=== PATIENT | male | born 1970 | race African-American/Black ===

== ENCOUNTER 2017-09-14 09:08 | Emergency (ER) | payer SELFPAY ==
[2017-09-14] MEDS ORDERED: Lisinopril 10 MG Tab PO ONE (09:25)
[2017-09-14] MEDS ORDERED: Metoprolol Tartrate 50 MG Tab PO ONE (09:26)
[2017-09-14] MEDS ORDERED: Indomethacin 25 MG Cap PO ONE (09:26)
[2017-09-14] MEDS ORDERED: Sodium Chloride 0.9% 2.5 ML Syringe FLUSH PRN (09:40)
[2017-09-14] MEDS ORDERED: Sodium Chloride 0.9% 10 ML Syringe FLUSH PRN (09:40)
[2017-09-14 10:19] LABS: CHLORIDE,CL 103 mmol/L (98-107); SODIUM,NA 139 mmol/L (136-148)
[2017-09-14] MEDS ORDERED: Aspirin 81 MG Tab.Chew PO ONE (10:27)
--- NOTE | 2017-09-14 10:47 | EDM.PDOC ---
ED HPI GENERAL MEDICAL PROBLEM - General Chief Complaint: Lower Extremity Injury/Pain Stated Complaint: GOUT Time Seen by Provider: 09/14/17 09:28 Source of Information: Reports: Patient History Limitations: Reports: No Limitations - History of Present Illness INITIAL COMMENTS - FREE TEXT/NARRATIVE: History of present illness: []Patient is followed by the CO and ran out of his meds approximately 2 weeks ago apparently some administrative misstake where they were sent to the wrong address. Patient has a history of hypertension, gout and CHF and has been off all his meds. He came in because his toe pain severe. He has been out of his allopurinol, lisinopril and metoprolol. Patient states he an episode of chest pain around 6AM but drank water and resolved. He states his pain only lasted about 2 minutes. Patient was in [place] 2 years ago and he was told he had a "protein leak from his heart" and had an angiogram that was negative. Review of systems: As per history of present illness and below otherwise all systems reviewed and negative. Past medical history: As per history of present illness and as reviewed below otherwise noncontributory. Surgical history: As per history of present illness and as reviewed below otherwise noncontributory. Social history: No reported history of drug or alcohol abuse. Family history: As per history of present illness and as reviewed below otherwise noncontributory. Physical exam: General: Well developed, well nourished in NAD HEENT: Atraumatic, normocephalic, pupils reactive, negative for conjunctival pallor or scleral icterus, mucous membranes moist, throat clear, neck supple, nontender, trachea midline. Lungs: Clear to auscultation, breath sounds equal bilaterally, chest nontender. Heart: S1S2, regular, negative for clicks, rubs, or JVD. Abdomen: Soft, nondistended, nontender. Negative for masses or hepatosplenomegaly. Negative for costovertebral tenderness. Pelvis: Stable nontender. Genitourinary: Deferred. Rectal: Deferred. Extremities: Atraumatic, right great toe tender no edema or deformity noted. Tender to palpation negative for cords or calf pain. Neurovascular unremarkable. Neuro: Awake, alert, oriented. Cranial nerves II through XII unremarkable. Cerebellum unremarkable. Motor and sensory unremarkable throughout. Exam nonfocal. Diagnostics: []EKG shows left bundle branch which is old no acute ischemic changes, CBC normal, chemistry normal, troponin 0.067 which is elevated, Therapeutics: []Aspirin, nitroglycerin, Lopressor and Cipro given in the ED Impression: []Uncontrolled high blood pressure, elevated troponin, gout Plan: []Transfer training [place] for further workup Definitive disposition and diagnosis as appropriate pending reevaluation and review of above. right great toe Pain Score (Numeric/FACES): 6 - Related Data Allergies Allergy/AdvReac Type Severity Reaction Status Date / Time shellfish derived Allergy Anaphylactic Verified 09/14/17 09:18 Shock Home Meds: Home Meds Lisinopril 20 mg PO DAILY #30 tablet 08/30/13 [Rx] Metoprolol Tartrate [Lopressor] 50 mg PO Q12HR #60 tablet 08/30/13 [Rx] Allopurinol 1 tab PO TID 09/14/17 [History] metFORMIN [Glucophage XR] 1 tab PO DAILY 09/14/17 [History] Past Medical History - Past Health History Medical/Surgical History: Denies Medical/Surgical History HEENT History: Reports: None Cardiovascular History: Reports: Hypertension Respiratory History: Reports: None Gastrointestinal History: Reports: None Genitourinary History: Reports: None Musculoskeletal History: Reports: Gout Neurological History: Reports: None Psychiatric History: Reports: None Endocrine/Metabolic History: Reports: Diabetes, Type II Hematologic History: Reports: None Immunologic History: Reports: None Oncologic (Cancer) History: Reports: None Dermatologic History: Reports: None - Infectious Disease History Infectious Disease History: Reports: Chicken Pox - Past Surgical History Head Surgeries/Procedures: Reports: None HEENT Surgical History: Reports: None Cardiovascular Surgical History: Reports: None Respiratory Surgical History: Reports: None GI Surgical History: Reports: Appendectomy Male Surgical History: Reports: None Endocrine Surgical History: Reports: None Neurological Surgical History: Reports: None Musculoskeletal Surgical History: Reports: None Oncologic Surgical History: Reports: None Dermatological Surgical History: Reports: Other (See Below) Social & Family History - Family History Family Medical History: Noncontributory - Tobacco Use Smoking Status *Q: Never Smoker Second Hand Smoke Exposure: No - Caffeine Use Caffeine Use: Reports: Coffee, Energy Drinks, Soda - Recreational Drug Use Recreational Drug Use: No Review of Systems - Review of Systems Review Of Systems: See Below (See history of present illness) ED EXAM, GENERAL - Physical Exam Exam: See Below (See history of present illness) Course - Vital Signs Last Recorded V/S: Last Vital Signs Temp 96.3 F 09/14/17 09:19 Pulse 88 09/14/17 10:27 Resp 17 09/14/17 10:27 BP 195/142 H 09/14/17 10:27 Pulse Ox 96 09/14/17 10:27 - Orders/Labs/Meds Orders: Active Orders 24 hr Category Date Time Status EKG Documentation Completion [RC] STAT Care 09/14/17 09:40 Active Chest 1V Frontal [CR] Stat Exams 09/14/17 10:33 Ordered B-TYPE NATRIURETIC PEPTIDE,BNP [CHEM] Stat Lab 09/14/17 10:33 Ordered CULTURE URINE [RM] Stat Lab 09/14/17 09:43 Received UA W/MICROSCOPIC [URIN] Stat Lab 09/14/17 09:43 Ordered Sodium Chloride 0.9% [Saline Flush] Med 09/14/17 09:40 Active 10 ml FLUSH ASDIRECTED PRN Sodium Chloride 0.9% [Saline Flush] Med 09/14/17 09:40 Active 2.5 ml FLUSH ASDIRECTED PRN Saline Lock Insert [OM.PC] Stat Oth 09/14/17 09:40 Ordered Medication Orders Sodium Chloride (Saline Flush) 10 ml FLUSH ASDIRECTED PRN PRN Reason: Keep Vein Open Last Admin: 09/14/17 09:53 Dose: 10 ml Sodium Chloride (Saline Flush) 2.5 ml FLUSH ASDIRECTED PRN PRN Reason: Keep Vein Open Last Admin: 09/14/17 09:53 Dose: 2.5 ml Labs: Laboratory Tests 09/14/17 09/14/17 09/14/17 Range/Units 09:43 09:47 09:47 WBC 9.04 (4.0-11.0) K/uL RBC 5.10 (4.50-5.90) M/uL Hgb 15.7 (13.0-17.0) g/dL Hct 44.6 (38.0-50.0) % MCV 87.5 (80.0-98.0) fL MCH 30.8 (27.0-32.0) pg MCHC 35.2 (31.0-37.0) g/dL RDW Std Deviation 42.4 (28.0-62.0) fl RDW Coeff of [place] 13 (11.0-15.0) % Plt Count 231 (150-400) K/uL MPV 10.80 (7.40-12.00) fL Neut % (Auto) 66.4 (48.0-80.0) % Lymph % (Auto) 20.7 (16.0-40.0) % Brule % (Auto) 7.2 (0.0-15.0) % Eos % (Auto) 5.3 (0.0-7.0) % Baso % (Auto) 0.4 (0.0-1.5) % Neut # (Auto) 6.0 H (1.4-5.7) K/uL Lymph # (Auto) 1.9 (0.6-2.4) K/uL Brule # (Auto) 0.7 (0.0-0.8) K/uL Eos # (Auto) 0.5 (0.0-0.7) K/uL Baso # (Auto) 0.0 (0.0-0.1) K/uL Nucleated RBC % 0.0 /100WBC Nucleated RBCs # 0 K/uL Sodium 139 (136-148) mmol/L Potassium 3.7 (3.5-5.1) mmol/L Chloride 103 (98-107) mmol/L Carbon Dioxide 25.5 (21.0-32.0) mmol/L BUN 16 (7.0-18.0) mg/dL Creatinine 1.2 (0.8-1.3) mg/dL Est Cr Clr Drug Dosing 81.73 mL/min Estimated GFR (MDRD) > 60.0 ml/min Glucose 159 H (74-106) mg/dL Calcium 9.1 (8.5-10.1) mg/dL Total Bilirubin 0.5 (0.2-1.0) mg/dL AST 19 (15-37) IU/L ALT 24 (14-63) IU/L Alkaline Phosphatase 86 (46-116) U/L Troponin I 0.067 H* (0.000-0.056) ng/mL Total Protein 8.3 H (6.4-8.2) g/dL Albumin 3.9 (3.4-5.0) g/dL Globulin 4.4 H (2.0-3.5) g/dL Albumin/Globulin Ratio 0.9 L (1.3-2.8) Urine Color YELLOW Urine Appearance CLEAR Urine pH 6.0 (5.0-8.0) Ur Specific [place] 1.015 (1.001-1.035) Urine Protein TRACE (NEGATIVE) mg/dL Urine Glucose (UA) NEGATIVE (NEGATIVE) mg/dL Urine Ketones NEGATIVE (NEGATIVE) mg/dL Urine Occult Blood TRACE-LYSED (NEGATIVE) Urine Nitrite NEGATIVE (NEGATIVE) Urine Bilirubin NEGATIVE (NEGATIVE) Urine Urobilinogen 0.2 (<2.0) EU/dL Ur Leukocyte Esterase NEGATIVE (NEGATIVE) Urine RBC 0-1 (0-2/HPF) Urine WBC 0-2 (0-5/HPF) Ur Epithelial Cells RARE (NONE-FEW) Urine Bacteria FEW (NEGATIVE) Meds: Medications Generic Name Dose Route Start Last Admin Trade Name Freq PRN Reason Stop Dose Admin Sodium Chloride 10 ml 09/14/17 09:40 09/14/17 09:53 Saline Flush FLUSH 10 ml ASDIRECTED PRN Administration Keep Vein Open Sodium Chloride 2.5 ml 09/14/17 09:40 09/14/17 09:53 Saline Flush FLUSH 2.5 ml ASDIRECTED PRN Administration Keep Vein Open Discontinued Medications Generic Name Dose Route Start Last Admin Trade Name Frenicki PRN Reason Stop Dose Admin Aspirin 324 mg 09/14/17 10:27 09/14/17 10:37 Aspirin PO 09/14/17 10:28 324 mg ONETIME ONE Administration Indomethacin 50 mg 09/14/17 09:26 09/14/17 09:48 Indocin PO 09/14/17 09:27 50 mg ONETIME ONE Administration Lisinopril 20 mg 09/14/17 09:25 09/14/17 09:53 Prinivil PO 09/14/17 09:26 20 mg ONETIME ONE Administration Metoprolol Tartrate 50 mg 09/14/17 09:26 09/14/17 09:49 Lopressor PO 09/14/17 09:27 50 mg ONETIME ONE Administration - Re-Assessments/Exams Free Text/Narrative Re-Assessment/Exam: Patient has been noncompliant with his meds for 2 weeks upon workup his troponin was positive. Patient is being transferred to [facility] for further workup. Dr. Klein in the ED etc. patient. Patient remained stable while in the ED 09/14/17 10:56 Departure - Departure Time of Disposition: 10:55 Disposition: DC/Tfer to Acute Hospital 02 Condition: Good Clinical Impression: Elevated troponin, Uncontrolled hypertension - Discharge Information Referrals: PCP,None [Primary Care Provider] - Forms: ED Department Discharge - My Orders Last 24 Hours: My Active Orders 09/14/17 09:40 EKG Documentation Completion [RC] STAT Sodium Chloride 0.9% [Saline Flush] 10 ml FLUSH ASDIRECTED PRN Sodium Chloride 0.9% [Saline Flush] 2.5 ml FLUSH ASDIRECTED PRN Saline Lock Insert [OM.PC] Stat 09/14/17 09:43 CULTURE URINE [RM] Stat UA W/MICROSCOPIC [URIN] Stat 09/14/17 10:33 Chest 1V Frontal [CR] Stat B-TYPE NATRIURETIC PEPTIDE,BNP [CHEM] Stat - Assessment/Plan Last 24 Hours: My Active Orders 09/14/17 09:40 EKG Documentation Completion [RC] STAT Sodium Chloride 0.9% [Saline Flush] 10 ml FLUSH ASDIRECTED PRN Sodium Chloride 0.9% [Saline Flush] 2.5 ml FLUSH ASDIRECTED PRN Saline Lock Insert [OM.PC] Stat 09/14/17 09:43 CULTURE URINE [RM] Stat UA W/MICROSCOPIC [URIN] Stat 09/14/17 10:33 Chest 1V Frontal [CR] Stat B-TYPE NATRIURETIC PEPTIDE,BNP [CHEM] Stat
[2017-09-14] MEDS ORDERED: Nitroglycerin 2% Oint 1 GM UD Packet TOP ONE (10:52)
--- NOTE | 2017-09-15 15:25 | CR ---
EXAM DATE: 09/14/17 PATIENT'S AGE: 47 Patient: [facility] Facility: [place], [place] Site . Site : [id number] Study: XRay Chest [id number]/[id number] 11:00:43 AM Ordering Physician: Arturo Mathews Final Report: HISTORY: Pain, shortness of breath. TECHNIQUE: One view of the chest. COMPARISON: No prior. FINDINGS: Cardiac size within normal limits accounting for technique. No pulmonary vascular redistribution. No acute lung infiltrate or pulmonary edema. No pneumothorax or pleural effusion. No acute bony abnormality. IMPRESSION: No acute disease. Dictated by Ryan Menon MD @ 09/14/2017 11:19:27 AM Dictated by: Ryan Menon MD @ 09/14/2017 11:19:33 (Electronic Signature) Report Signed by Proxy. [facility]
== END 2017-09-14 11:28 ==
LOC: MW.ED 09:08
DX: I11.0 Hypertensive heart disease with heart failure (principal); I50.9 Heart failure, unspecified; R79.89 Other specified abnormal findings of blood chemistry; Z79.899 Other long term (current) drug therapy; Z79.84 Long term (current) use of oral hypoglycemic drugs; E11.9 Type 2 diabetes mellitus without complications; Z91.013 Allergy to seafood
CPT/HCPCS: 36415; 71045; 80053; 81001; 83880; 84484; 85025; 87086; 93005; 99285; A9270